=== PATIENT | male | born 1950 | race Caucasian/White ===

== ENCOUNTER 2017-06-22 08:38 | Emergency (ER) | payer MEDICARE ==
[~2017-06-22] VITALS: Ht 167.6 cm; Wt 88.5 kg
[~2017-06-22 08:38] MED LIST: ACET325T14 PO; ASPI-621 PO; CIPR500T87 PO; LOVA40TA2 PO; METF10002 PO; METR500T PO; PIOG15TA2 PO; PIOG45TA4 PO
[2017-06-22] MEDS ORDERED: KETOROLAC 30 MG/1 ML ONE (09:26)
[2017-06-22] MEDS ORDERED: HYDROcodone/APAP 5/325 TABLET ONE (09:26)
[2017-06-22] MEDS ORDERED: KETOROLAC 30 MG/1 ML IM ONE (09:30)
[2017-06-22] MEDS ORDERED: HYDROcodone/APAP 5/325 TABLET PO ONE (09:30)
[2017-06-22] MEDS ORDERED: PIOG15TA4 PO (09:38)
[2017-06-22 11:03] LABS: BLOOD UREA NITROGEN 16 mg/dL (7-18)
[2017-06-22] MEDS ORDERED: OMNIPAQUE 350 MG/ML, 100ML BOTTLE ONE (11:39)
[2017-06-22 13:18] VITALS: BP 149/79
== END 2017-06-22 13:21 | disposition home or self-care (01) ==
LOC: ED 09:05
DX: S76.112A Strain of left quadriceps muscle, fascia and tendon, initial encounter (principal); E11.9 Type 2 diabetes mellitus without complications; E78.5 Hyperlipidemia, unspecified; X58.XXXA Exposure to other specified factors, initial encounter; Y93.89 Activity, other specified; Y92.89 Other specified places as the place of occurrence of the external cause; Y99.8 Other external cause status
CPT/HCPCS: 36415; 72193; 73502; 80048; 81003; 82040; 85025; 85651; 86141; 93971; 99285; J1885; Q9967

== ENCOUNTER 2017-12-19 13:06 | Emergency (ER) | payer MEDICARE ==
[~2017-12-19] VITALS: Ht 172.7 cm; Wt 84.7 kg
[~2017-12-19 13:06] MED LIST changes: +PIOG15TA4 PO
[2017-12-19] MEDS ORDERED: ONDANSETRON 2MG/ML, 2ML ONE (13:50)
[2017-12-19] MEDS ORDERED: FAMOTIDINE 20 MG/2 ML ONE (13:50)
[2017-12-19] MEDS ORDERED: ONDANSETRON 2MG/ML, 2ML IVPush ONE (14:00)
[2017-12-19] MEDS ORDERED: SODIUM CHLORIDE FLUSH 10ML SYR IVF ONE (14:00)
[2017-12-19] MEDS ORDERED: MAALOX/HYOSCYAMINE/LIDOCAINE 45 ML BTL PO ONE (14:00)
[2017-12-19] MEDS ORDERED: FAMOTIDINE 20 MG/2 ML IVP ONE (14:00)
[2017-12-19] MEDS ORDERED: SODIUM CHLORIDE 0.9% 1,000ML IVBOLUS ONE ×2 (14:00→15:30)
[2017-12-19 14:06] LABS: BASOPHILS # (AUTO) 0.02 x10^3/uL (0-0.1); BASOPHILS % (AUTO) 0 % (0-1); EOSINOPHILS % (AUTO) 0 % (1-7); LYMPHOCYTES # (AUTO) 0.58 x10^3/uL (1-3.4); LYMPHOCYTES % (AUTO) 5 % (22-44); MD NO; MEAN CORPUSCULAR HEMOGLOBIN 28.6 pg (27.5-34.5); MEAN CORPUSCULAR HGB CONC 33.6 g/dL (33.2-36.2); MEAN PLATELET VOLUME 7.8 fL (7.4-10.4); MONOCYTES # (AUTO) 0.95 x10^3/uL (0.2-0.8); MONOCYTES % (AUTO) 9 % (2-9); NEUTROPHILS # (AUTO) 9.51 x10^3/uL (1.8-6.8); NEUTROPHILS % (AUTO) 86 % (42-75); PLATELET COUNT 217 x10^3/uL (130-400); RED BLOOD COUNT 4.92 x10^6/uL (4.38-5.82); RED CELL DISTRIBUTION WIDTH 13.9 % (9.4-14.8)
[2017-12-19] MEDS ORDERED: MAALOX/HYOSCYAMINE/LIDOCAINE 45 ML BTL ONE (14:09)
[2017-12-19] MEDS ORDERED: KETOROLAC 30 MG/1 ML ONE (14:09)
[2017-12-19] MEDS ORDERED: KETOROLAC 30 MG/1 ML IVPush ONE (14:30)
[2017-12-19 14:33] LABS: ALBUMIN 3.5 g/dL (3.4-5.0); ANION GAP 8 mmol/L (5-15); CALCIUM 8.7 mg/dL (8.5-10.1); CHLORIDE 98 mmol/L (98-107)
[2017-12-19 14:37] LABS: ALANINE AMINOTRANSFERASE 17 U/L (12-78); ALKALINE PHOSPHATASE 54 U/L (45-117); BILIRUBIN,TOTAL 0.6 mg/dL (0.2-1.0); CREATININE 1.04 mg/dL (0.7-1.3); TOTAL PROTEIN 7.3 g/dL (6.4-8.2)
[2017-12-19 16:44] VITALS: BP 121/64
== END 2017-12-19 16:46 | disposition home or self-care (01) ==
LOC: ED 13:42
DX: K52.29 Other allergic and dietetic gastroenteritis and colitis (principal); E11.9 Type 2 diabetes mellitus without complications; E78.5 Hyperlipidemia, unspecified
CPT/HCPCS: 36415; 80053; 83690; 85025; 96361; 96374; 96375; 99284; J1885; J2405; J7030; S0028

== ENCOUNTER 2019-04-17 06:58 | Emergency (ER) | payer MEDICARE, OTHER ==
[~2019-04-17] VITALS: Ht 167.6 cm; Wt 82.6 kg
[~2019-04-17 06:58] MED LIST changes: -ASPI-621 PO; +ASPI81TA45 PO; -PIOG15TA2 PO; +PIOG15TA66 PO
[2019-04-17 07:02] VITALS: BP 148/72
[2019-04-17] MEDS ORDERED: HYDROcodone/APAP 5/325 TABLET PO ONE (07:30)
[2019-04-17] MEDS ORDERED: HYDROcodone/APAP 5/325 TABLET ONE (07:31)
--- NOTE | 2019-04-17 07:37 | NUR ---
pt taken to radiology
--- NOTE | 2019-04-17 09:11 | NUR ---
knee immobilizer placed on left knee. pt refused crutches and will use cane for now. Follow up orthopedics.
== END 2019-04-17 09:59 | disposition home or self-care (01) ==
LOC: ED 09:25
DX: S82.032A Displaced transverse fracture of left patella, initial encounter for closed fracture (principal); M79.605 Pain in left leg; I10 Essential (primary) hypertension; E78.5 Hyperlipidemia, unspecified; E11.9 Type 2 diabetes mellitus without complications; W01.0XXA Fall on same level from slipping, tripping and stumbling without subsequent striking against object, initial encounter; Y93.89 Activity, other specified; Y92.410 Unspecified street and highway as the place of occurrence of the external cause; Y99.8 Other external cause status
CPT/HCPCS: 29505; 99284